=== PATIENT | male | born 1940 | race Caucasian/White ===

== ENCOUNTER → 2017-09-09 08:43 | Outpatient (CLI) | payer MEDICARE, SELFPAY ==
[2017-09-09 09:40] LABS: Add Manual Diff / Slide Review NO; Basophils Percent Auto 0.7 % (0-2); Eosinophils Percent Auto 9.3 % (2-4); Hematocrit 41.2 % (41-53); Hemoglobin 14.3 g/dL (13.5-17.5); Lymphocytes Percent Auto 34.7 % (25-40); Mean Corpuscular HGB Conc 34.8 % (30-36); Mean Corpuscular Hemoglobin 32.1 PG (26-34); Mean Corpuscular Volume 92.3 fL (80-100); Monocytes Percent Auto 8.7 % (3-14); Neutrophils Absolute Auto 3800 /uL (3000-5900); Neutrophils Percent Auto 46.6 % (50-75); Platelet Count 213 X10^3/uL (150-400); Red Blood Cell Count 4.47 X10^6/uL (4.5-5.9); Red Cell Distribution Width 13.6 % (11.6-14.8); White Blood Cell Count 8.2 X10^3/uL (4.5-11.0)
[2017-09-09 09:42] LABS: Alanine Aminotransferase 40 IU/L (21-72); Albumin 4.2 g/dL (3.5-5.0); Albumin Globulin Ratio 1.3 (1.0-2.8); Alkaline Phosphatase 63 U/L (38-126); Aspartate Aminotransferase 30 IU/L (17-59); BUN Creatinine Ratio 23.3 (6-22); Bilirubin Total 0.5 mg/dL (0.2-1.3); Blood Urea Nitrogen 28 mg/dL (9-20); Calcium 9.5 mg/dL (8.4-10.2); Carbon Dioxide 30 mmol/L (22-32); Chloride 103 mmol/L (98-107); Cholesterol 141 mg/dL (140-199); Estimated Glomerular Filt Rate 58.9 mL/min (>60); Globulin 3.3 g/dL (1.7-4.1); Glucose 106 mg/dL (80-110); HDL Cholesterol 37 mg/dL (40-60); HEMOLYSIS < 15 (0-50); LDL Cholesterol Calculated 83 mg/dL (<100); Potassium 4.7 mmol/L (3.4-5.1); Sodium 143 mmol/L (137-145); Total Protein 7.5 g/dL (6.3-8.2); Triglycerides 107 mg/dL (35-150)
== END ==
PROVIDERS: Family Provider Family Medicine; PCP Family Medicine; Visit Provider Family Medicine
DX: I10 Essential (primary) hypertension (principal); E78.00 Pure hypercholesterolemia, unspecified; Z51.81 Encounter for therapeutic drug level monitoring
CPT/HCPCS: 36415; 80053; 80061; 85025

== ENCOUNTER → 2018-01-27 10:04 | Outpatient (CLI) | payer MEDICARE, SELFPAY ==
[2018-01-27 10:24] LABS: Add Manual Diff / Slide Review NO; Basophils Percent Auto 0.6 % (0-2); Eosinophils Percent Auto 7.7 % (2-4); Hematocrit 43.3 % (41-53); Mean Corpuscular HGB Conc 34.6 % (30-36); Mean Corpuscular Volume 92.7 fL (80-100); Monocytes Percent Auto 7.4 % (3-14); Neutrophils Absolute Auto 3600 /uL (3000-5900); Neutrophils Percent Auto 46.3 % (50-75); Platelet Count 226 X10^3/uL (150-400); Red Blood Cell Count 4.67 X10^6/uL (4.5-5.9); Red Cell Distribution Width 12.9 % (11.6-14.8); White Blood Cell Count 7.8 X10^3/uL (4.5-11.0)
[2018-01-27 10:43] LABS: Alanine Aminotransferase 47 IU/L (21-72); Albumin 4.6 g/dL (3.5-5.0); Albumin Globulin Ratio 1.2 (1.0-2.8); Alkaline Phosphatase 65 U/L (38-126); Aspartate Aminotransferase 38 IU/L (17-59); Bilirubin Total 0.8 mg/dL (0.2-1.3); Blood Urea Nitrogen 22 mg/dL (9-20); Calcium 9.4 mg/dL (8.4-10.2); Carbon Dioxide 29 mmol/L (22-32); Chloride 100 mmol/L (98-107); Cholesterol 135 mg/dL (140-199); Estimated Glomerular Filt Rate > 60.0 mL/min (>60); Globulin 3.7 g/dL (1.7-4.1); Glucose 106 mg/dL (80-110); HDL Cholesterol 30 mg/dL (40-60); HEMOLYSIS < 15 (0-50); LDL Cholesterol Calculated 72 mg/dL (<100); Sodium 143 mmol/L (137-145); Total Protein 8.3 g/dL (6.3-8.2); Triglycerides 167 mg/dL (35-150)
[2018-01-27 11:10] LABS: Prostate Specific Antigen Scrn 0.892 ng/mL (0.1-4.0)
== END ==
PROVIDERS: Family Provider Family Medicine; PCP Family Medicine; Visit Provider Family Medicine
DX: E78.2 Mixed hyperlipidemia (principal); I10 Essential (primary) hypertension; E78.5 Hyperlipidemia, unspecified; Z12.5 Encounter for screening for malignant neoplasm of prostate
CPT/HCPCS: 36415; 80053; 80061; 84443; 85025; G0103

== ENCOUNTER → 2018-08-11 11:33 | Outpatient (CLI) | payer MEDICARE, SELFPAY ==
[2018-08-11 12:15] LABS: Add Manual Diff / Slide Review NO; Basophils Absolute Auto 0 /uL (0-100); Basophils Percent Auto 0.6 % (0-2); Eosinophils Absolute Auto 500 /uL (0-450); Eosinophils Percent Auto 6.2 % (2-4); Hematocrit 42.7 % (41-53); Hemoglobin 14.6 g/dL (13.5-17.5); Lymphocytes Absolute Auto 2500 /uL (1100-4500); Lymphocytes Percent Auto 31.9 % (25-40); Mean Corpuscular HGB Conc 34.2 % (30-36); Mean Corpuscular Hemoglobin 32.1 PG (26-34); Mean Corpuscular Volume 93.8 fL (80-100); Monocytes Absolute Auto 800 /uL (0-900); Monocytes Percent Auto 9.7 % (3-14); Neutrophils Absolute Auto 4000 /uL (1500-7000); Neutrophils Percent Auto 51.6 % (50-75); Platelet Count 215 X10^3/uL (150-400); Red Blood Cell Count 4.55 X10^6/uL (4.5-5.9); Red Cell Distribution Width 13.1 % (11.6-14.8); White Blood Cell Count 7.8 X10^3/uL (4.5-11.0)
[2018-08-11 13:03] LABS: Alanine Aminotransferase 36 IU/L (21-72); Albumin 4.4 g/dL (3.5-5.0); Albumin Globulin Ratio 1.3 (1.0-2.8); Alkaline Phosphatase 69 U/L (38-126); Aspartate Aminotransferase 29 IU/L (17-59); BUN Creatinine Ratio 18.2 (6-22); Bilirubin Total 0.7 mg/dL (0.2-1.3); Blood Urea Nitrogen 20 mg/dL (9-20); Calcium 9.7 mg/dL (8.4-10.2); Carbon Dioxide 29 mmol/L (22-32); Chloride 103 mmol/L (98-107); Cholesterol 131 mg/dL (140-199); Estimated Glomerular Filt Rate > 60.0 mL/min (>60); Globulin 3.5 g/dL (1.7-4.1); Glucose 100 mg/dL (80-110); HDL Cholesterol 32 mg/dL (40-60); HEMOLYSIS < 15 (0-50); LDL Cholesterol Calculated 64 mg/dL (<100); Potassium 4.9 mmol/L (3.4-5.1); Sodium 141 mmol/L (137-145); Total Protein 7.9 g/dL (6.3-8.2); Triglycerides 174 mg/dL (35-150)
== END ==
PROVIDERS: Family Provider Family Medicine; PCP Family Medicine; Visit Provider Family Medicine
DX: E78.5 Hyperlipidemia, unspecified (principal); I10 Essential (primary) hypertension; N28.9 Disorder of kidney and ureter, unspecified
CPT/HCPCS: 36415; 80053; 80061; 85025

== ENCOUNTER → 2018-09-20 15:23 | Outpatient (CLI) | payer MEDICARE, SELFPAY ==
--- NOTE | 2018-09-20 15:25 | DI.RAD.S_ITS ---
PROCEDURE: XR THORACIC SPINE 3V INDICATIONS: Thoracic myofascial strain TECHNIQUE: 3 views of the thoracic spine were acquired. COMPARISON: None. FINDINGS: Bones: No fractures or dislocations. No suspicious bony lesions. 12 pairs of ribs are noted, and appear intact where visualized. Soft tissues: No paravertebral stripe thickening. 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 This film is made of what appears to be in aortic stent graft and right upper quadrant cholecystectomy clips. Dictated by: Agustín Armijo M.D. on 09/20/2018 at 16:06 Approved by: Agustín Armijo M.D. on 09/20/2018 at 16:07
== END ==
PROVIDERS: PCP Family Medicine; Visit Provider Family Medicine
DX: M51.34 Other intervertebral disc degeneration, thoracic region (principal); S29.019A Strain of muscle and tendon of unspecified wall of thorax, initial encounter
CPT/HCPCS: 72072

== ENCOUNTER 2018-11-10 09:45 | Outpatient (RCR) | payer MEDICARE, SELFPAY ==
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
--- NOTE | 2018-10-10 15:57 | PT.OPPOC ---
Current Diagnoses Pain in thoracic spine (10/10/18) Strain of muscle and tendon of unspecified wall of thorax, initial encounter (10/10/18) Visit Care Team Role Provider Type Nadia Meeks DO Attending Provider Physician Primary [facility] Provider [facility] Address: [address] [place] [address], [address] [place] [address], [id number] Email: [email or web address] Plan Of Care PT-OP-T Assessment and Plan Start: 10/10/18 07:35 Freq: Status: Active Protocol: Document 10/10/18 14:30 AMB (Rec: 10/14/18 07:28 AMB [email or web address]) Physical Therapy Assessment Rehab Potential Rehabilitation Potential Good Evaluation Complexity Number of Personal Factors/Comorbidities 1-2 Number of Body Systems Impaired 3 Clinical Presentation at Evaluation Stable Impairments Impairments Pain,Posture,ROM Goals Two Impairment return to activity Short Term Goal (STG) Caesar will play 9 holes of golf without an increase in thoracic back pain. STG Duration 4 weeks Longterm Goal (LTG) Caesar will work on his car for 1 hour with thoracic back pain of 3/10 or less. LTG Duration 8 weeks One Impairment ROM Short Term Goal (STG) Caesar will improve his active sidebending ROM to 15 degrees . STG Duration 4 weeks Clinical Education Academic Coordinator Goal (LTG) Caesar will improve his spinal rotation so that he can roll over in bed without pain. LTG Duration 8 weeks Assessment Summary Assessment Caesar attends PT with worsening chronic right sided thoracic pain that is reproduced with thoracic rotation and sidebending. Pt has high level goals of working on his car (standing and flexing forward for extended periods of time) and return to golf. He will need to improve both his spinal range and stability to meet those goals. Physical Therapy Plan Frequency and Duration Frequency of Treatment 2x/Week Duration of Treatment 8 weeks Plan of Care Start Date 10/10/18 Plan of Care End Date 12/05/18 Therapeutic Interventions Therapeutic Interventions Aquatic Therapy,Home Exercise Program,Joint Mobilizations, Manual Therapy,Neuromuscular Re-education,Self-Care/Home Management,Therapeutic Activities,Therapeutic Exercises Modalities Cold Pack/Ice Massage,Electric Stimulation,Hot Packs Next Visit Focus/Plan Next Note Type Treatment Note Next Visit Plan Manual therapy to promote spinal rotation without pain, ther ex to move into rotation and flexion with less pain Plan of Care Dates Plan of Care Start Date 10/10/18 Plan of Care End Date 12/05/18 Please Sign and Return: I have reviewed this Plan of Care and certify that the skilled therapy services above are required to meet the patient?s needs. Physician Signature Date Printed Name and Credentials Clinical Instructor Signature Printed Name and Credentials
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
== END 2018-11-25 12:31 ==
LOC: PHYS 09:45
PROVIDERS: PCP Family Medicine; Visit Provider Family Medicine
DX: S29.019A Strain of muscle and tendon of unspecified wall of thorax, initial encounter (principal); M54.6 Pain in thoracic spine
CPT/HCPCS: 97110; 97140; 97161

== ENCOUNTER → 2019-08-16 09:59 | Outpatient (CLI) | payer MEDICARE, SELFPAY ==
[2019-08-16 11:20] LABS: Creatinine Urine Random 230.4 mg/dL
[2019-08-16 11:25] LABS: Microalbumi Creatinin Ratio Ur 9.1 ug/mg CR (<30); Microalbumin Urine Random 2.1 mg/dL (0-1.6)
[2019-08-16 11:41] LABS: Alanine Aminotransferase 35 IU/L (<50); Albumin 4.3 g/dL (3.5-5.0); Albumin Globulin Ratio 1.3 (1.0-2.8); Alkaline Phosphatase 69 U/L (38-126); Aspartate Aminotransferase 40 IU/L (17-59); BUN Creatinine Ratio 22.4 (6-22); Blood Urea Nitrogen 24 mg/dL (9-20); Calcium 9.5 mg/dL (8.4-10.2); Carbon Dioxide 26 mmol/L (22-32); Chloride 104 mmol/L (98-107); Cholesterol 133 mg/dL (140-199); Estimated Glomerular Filt Rate > 60.0 mL/min (>60); Globulin 3.2 g/dL (1.7-4.1); Glucose 99 mg/dL (80-110); HDL Cholesterol 29 mg/dL (40-60); HEMOLYSIS < 15 (0-50); LDL Cholesterol Calculated 71 mg/dL (<100); Potassium 4.3 mmol/L (3.4-5.1); Sodium 137 mmol/L (137-145); Total Protein 7.5 g/dL (6.3-8.2); Triglycerides 165 mg/dL (35-150)
[2019-08-16 12:06] LABS: Free T3, Triiodothyronine Free 4.18 pg/mL (2.77-5.27); Free T4, Direct Thyroxine 0.76 ng/dL (0.78-2.19)
[2019-08-16 12:20] LABS: Thyroid Stimulating Hormone 4.47 uIU/mL (0.47-4.68)
== END ==
PROVIDERS: PCP Nurse Practitioner; Referring Provider Nurse Practitioner; Visit Provider Nurse Practitioner
DX: E78.5 Hyperlipidemia, unspecified (principal); I10 Essential (primary) hypertension; Z79.899 Other long term (current) drug therapy
CPT/HCPCS: 36415; 80053; 80061; 82043; 82570; 84439; 84443; 84481

== ENCOUNTER → 2019-08-23 10:23 | Outpatient (CLI) | payer MEDICARE, SELFPAY ==
[2019-08-24 16:15] LABS: Hep C Virus Ab w/Reflex Quant NEGATIVE s/c (NEGATIVE)
== END ==
PROVIDERS: PCP Nurse Practitioner; Referring Provider Nurse Practitioner; Visit Provider Nurse Practitioner
DX: Z91.89 Other specified personal risk factors, not elsewhere classified (principal); Z11.59 Encounter for screening for other viral diseases
CPT/HCPCS: 36415; 86803

== ENCOUNTER → 2019-09-01 11:47 | Outpatient (CLI) | payer MEDICARE, SELFPAY ==
[2019-09-02 21:00] LABS: COVID19 Sendout Not Detected (Not Detect)
== END ==
PROVIDERS: PCP Nurse Practitioner; Visit Provider Nurse Practitioner
DX: Z01.812 Encounter for preprocedural laboratory examination (principal)
CPT/HCPCS: 87635

== ENCOUNTER 2019-09-04 07:30 | Day surgery (SDC) | payer MEDICARE, SELFPAY ==
[2019-08-30 14:00] VITALS: BMI 31.7
[2019-09-04] VITALS (7 sets, daily range): BP systolic 123–141; BP diastolic 77–87; PULSE 60–69; RESP 11–16; TEMP 35.7–36.1; O2SAT 95–98; BMI 31.4
--- NOTE | 2019-09-04 | PATH_ITS ---
[facility] Accession Number: [id number] . 01 Material submitted: . PART A: hemorrhoids - RIGHT ANTERIOR HEMORRHOID PART B: hemorrhoids - RIGHT LATERAL HEMORRHOID PART C: hemorrhoids - POSTERIOR MIDLINE HEMORRHOID PART D: hemorrhoids - LEFT LATERAL HEMORRHOID . 01 Clinical history: . SDC . 02 Diagnosis: A. Right Anterior Hemorrhoid: Hemorrhoid x1; negative for atypia or malignancy. . B. Right Lateral Hemorrhoid: Hemorrhoid with focal vascular thrombosis; negative for atypia or malignancy. . C. Posterior Midline Hemorrhoid: Hemorrhoid x1; negative for atypia or malignancy. . D. Left Lateral Hemorrhoid: Hemorrhoid x1; negative for atypia or malignancy. [facility] 09/06/2019 0958 Local . 02 Electronically signed: . Shira Mcghee MD, Pathologist NPI- [id number] . 01 Gross description: . A. Received in formalin and labeled with right anterior hemorrhoid, is one piece of gomez soft tissue measuring 2.6 x 1.9 x 0.6 cm. The tissue is inked, serially sectioned, and submitted in three software sales representative sections in cassette A1. B. Received in formalin and labeled with right lateral hemorrhoid, is one piece of gomez firm tissue 3.9 x 1.4 x 0.5 cm. The tissue is inked, serially sectioned and submitted in six software sales representative sections in cassettes B1 and B2, with three slices per cassette. C. Received in formalin and labeled with posterior midline hemorrhoid, are two pieces of gomez soft tissue measuring 1.7 x 1.5 x 0.5 to 1.3 x 0.6 x 0.4 cm. Both pieces are inked. Two software sales representative sections are taken from both pieces and entirely submitted in cassette C1, for a total of four pieces. D. Received in formalin and labeled with left lateral hemorrhoid, is one piece of gomez firm tissue measuring 1.2 x 1.0 x 0.4 cm. The tissue is inked, trisected, and entirely submitted in cassette D1. ([id number]) /MRV 09/05/2019 0949 Local . 02 Pathologist provided ICD-10: K64.9 . 02 CPT . 551029, [id number], 508042, [id number] Performed at: 01 [facility] [address] [id number] MD Jesus Ceballos MD Phone: [phone] Performed at: 02 [facility] [id number] [place] [id number] MD Theresa Antoine MD Phone: [phone]
--- NOTE | 2019-09-04 07:53 | PM.PREOP ---
Pre-operative Note COVID-19 COVID-19 status: Negative Result date/Date tested (Pos, Neg/Pending): 09/01/19 Interval Note History & Physical reviewed/Exam performed by Physician: Yes Changes to H&P: No
[2019-09-04] MEDS: LACTATED RINGERS 1,000 ML 42 ML IV (08:06)
[2019-09-04] MEDS: CEFOTETAN 2 GM/50 ML PIGGYBACK IV (08:25)
--- NOTE | 2019-09-04 08:50 | SUR.OPER ---
Prone on padded OR bed, head in foam head support, gel chest rolls, gel pad under knees, pillow under lower legs, toes free of pressure, arms secured on padded arm boards at <90 degrees abduction. Safety belt at thigh.
[2019-09-04] MEDS: DIBUCAINE 1% OINT 28 GM 1 APPLIC TOP (08:57)
[2019-09-04] MEDS: LIDOCAINE 1% W/EPI 20 ML INJ (08:58)
[2019-09-04] MEDS: OXYCODONE/ACETAMINOPHEN 5/325 TABLET 1 TAB PO (10:11)
--- NOTE | 2019-09-04 10:11 | PM.OP.1 ---
Operative Date/Time/Diagnoses Date of procedure: 09/04/19 Time of procedure: 10:00 Pre-op diagnosis: Grade 3 bleeding internal and external hemorrhoids Post-op diagnosis: same Procedure & Clinicians Procedure: For column hemorrhoidectomy. To the columns were principally internal hemorrhoids. Two had some external component. Same procedure as scheduled: Yes Indications: Symptomatic hemorrhoidal disease Surgeon: Chauncey Mejia Click Yes if Unassisted: Yes Anesthesia Type: General Operative Notes Findings: Four large columns of hemorrhoids. There was a right anterior lateral right lateral midline posterior and left lateral columns. The last 2 were principally internal hemorrhoids. Closure Type: not applicable Specimen(s): other (Four columns of hemorrhoids) Estimated Blood Loss (mL): 150 Blood products transfused: none Procedure in detail: The patient was se struck knife prone on the operating room table after undergoing general endotracheal anesthesia. He was taped and prepped and draped in the usual fashion. Digital exam was remarkable only for hemorrhoids. These were principally visible and appeared to be large. Circumferential exam was performed with the bivalve anoscope. I could not identify any lesions other than large hemorrhoids. Beginning in the right anterior anterior position, a suture was placed at the head of the hemorrhoid column. An incision was made in the anal derm sparing as much as possible. The hemorrhoid was lifted off the underlying sphincter and muscle and excised. The defect created was closed with a running locking 2 0 chromic suture. In an identical fashion the right lateral hemorrhoidal column was removed. There is arterial bleeding from this that was controlled with a separate [id number] suture. The defect created was then closed in an identical fashion to the 1st. I then turned my attention to the posterior midline hemorrhoidal column. This was principally an internal hemorrhoid. Suture was placed at the head of the column and the hemorrhoid was excised distal to this. The defect created was closed with a running 2 0 chromic locking suture. The final column, a little left lateral column, was removed in identical fashion to the posterior midline hemorrhoid. I then oversewed areas that had any bleeding and meticulous hemostasis was achieved. Gelfoam with Nupercainal was inserted into the anus. A dressing was applied the patient was placed back on the stretcher supine, awakened and extubated and taken recovery room good condition. Complications: none Post-operative Condition: stable Disposition: PACU Plan for aftercare: Follow-up in the office
== END 2019-09-04 11:17 | disposition home or self-care (01) ==
PROVIDERS: PCP Nurse Practitioner; Referring Provider Specialist; Visit Provider Specialist
PROC: (CPT 46260; principal; 2019-09-04 09:15)
DX: K64.2 Third degree hemorrhoids (principal); K21.9 Gastro-esophageal reflux disease without esophagitis; I10 Essential (primary) hypertension; E78.5 Hyperlipidemia, unspecified; K64.4 Residual hemorrhoidal skin tags
CPT/HCPCS: 46260; J1100; J2405; J2704; J3010

== ENCOUNTER → 2019-11-21 10:37 | Outpatient (CLI) | payer MEDICARE, SELFPAY ==
[2019-11-21 12:43] LABS: Cholesterol 133 mg/dL (140-199); HDL Cholesterol 26 mg/dL (40-60); LDL Cholesterol Calculated 71 mg/dL (<100); Triglycerides 178 mg/dL (35-150)
[2019-11-21 13:22] LABS: Thyroid Stimulating Hormone 3.45 uIU/mL (0.47-4.68)
[2019-11-21 13:23] LABS: Creatinine Urine Random 134.1 mg/dL
[2019-11-21 13:27] LABS: Microalbumi Creatinin Ratio Ur 7.4 ug/mg CR (<30)
== END ==
PROVIDERS: PCP Nurse Practitioner; Referring Provider Nurse Practitioner; Visit Provider Nurse Practitioner
DX: E78.5 Hyperlipidemia, unspecified (principal); I10 Essential (primary) hypertension; Z11.59 Encounter for screening for other viral diseases; Z91.89 Other specified personal risk factors, not elsewhere classified
CPT/HCPCS: 36415; 80061; 82043; 82570; 84443

== ENCOUNTER → 2020-07-09 07:41 | Outpatient (CLI) | payer MEDICARE, SELFPAY ==
[2020-07-09 08:35] LABS: Alanine Aminotransferase 33 IU/L (<50); Albumin 4.2 g/dL (3.5-5.0); Albumin Globulin Ratio 1.2 (1.0-2.8); Alkaline Phosphatase 67 U/L (38-126); Aspartate Aminotransferase 33 IU/L (17-59); Bilirubin Total 0.6 mg/dL (0.2-1.3); Blood Urea Nitrogen 20 mg/dL (9-20); Calcium 9.4 mg/dL (8.4-10.2); Carbon Dioxide 24 mmol/L (22-32); Chloride 106 mmol/L (98-107); Cholesterol 135 mg/dL (140-199); Estimated Glomerular Filt Rate > 60.0 mL/min (>60); Globulin 3.5 g/dL (1.7-4.1); Glucose 106 mg/dL (80-110); HDL Cholesterol 33 mg/dL (40-60); HEMOLYSIS < 15 (0-50); LDL Cholesterol Calculated 74 mg/dL (<100); Potassium 4.3 mmol/L (3.4-5.1); Sodium 138 mmol/L (137-145); Total Protein 7.7 g/dL (6.3-8.2); Triglycerides 140 mg/dL (35-150)
[2020-07-09 08:45] LABS: Free T3, Triiodothyronine Free 3.58 pg/mL (2.77-5.27); Free T4, Direct Thyroxine 0.85 ng/dL (0.78-2.19)
[2020-07-09 08:59] LABS: Thyroid Stimulating Hormone 5.59 uIU/mL (0.47-4.68)
[2020-07-09 09:11] LABS: Creatinine Urine Random 329.5 mg/dL
[2020-07-09 09:15] LABS: Microalbumi Creatinin Ratio Ur 5.4 ug/mg CR (<30); Microalbumin Urine Random 1.8 mg/dL (0-1.6)
== END ==
PROVIDERS: PCP Nurse Practitioner; Referring Provider Nurse Practitioner; Visit Provider Nurse Practitioner
DX: E78.5 Hyperlipidemia, unspecified (principal); I10 Essential (primary) hypertension; Z79.899 Other long term (current) drug therapy
CPT/HCPCS: 36415; 80053; 80061; 82043; 82570; 84439; 84443; 84481

== ENCOUNTER → 2020-07-30 11:22 | Outpatient (CLI) | payer MEDICARE, SELFPAY ==
--- NOTE | 2020-07-30 11:26 | DI.RAD.S_ITS ---
PROCEDURE: XR CHEST 2V INDICATIONS: wheezing and cough TECHNIQUE: 2 views of the chest were acquired. COMPARISON: None. FINDINGS: Surgical changes and devices: None. Lungs and pleura: Lungs are abnormal with relatively large lung volumes and a mild degree of interstitial prominence, potentially representing COPD. No pneumonia or neoplasm found.. No pleural effusions or pneumothorax. Mediastinum: Mediastinal contours are normal. Heart size is normal. Bones and chest wall: No suspicious bony abnormalities. Soft tissues appear unremarkable. IMPRESSION: Suspect COPD, no acute disease. Dictated by: Agustín Armijo M.D. on 07/30/2020 at 12:19 Approved by: Agustín Armijo M.D. on 07/30/2020 at 12:20
== END ==
PROVIDERS: PCP Nurse Practitioner; Referring Provider Nurse Practitioner; Visit Provider Nurse Practitioner
DX: R06.2 Wheezing (principal); R05 Cough
CPT/HCPCS: 71046

== ENCOUNTER → 2020-09-15 15:53 | Outpatient (CLI) | payer MEDICARE, SELFPAY | PROVIDERS: PCP Nurse Practitioner; Visit Provider Student in an Organized Health Care Education/Training Program | DX: R30.0 Dysuria (principal) | CPT/HCPCS: 87077; 87086; 87186 ==

== ENCOUNTER → 2021-07-15 09:07 | Outpatient (CLI) | payer MEDICARE, SELFPAY ==
[2021-07-15 10:22] LABS: Alanine Aminotransferase 28 IU/L (<50); Albumin 4.3 g/dL (3.5-5.0); Albumin Globulin Ratio 1.3 (1.0-2.8); Alkaline Phosphatase 70 U/L (38-126); Aspartate Aminotransferase 29 IU/L (17-59); BUN Creatinine Ratio 14.8 (6-22); Bilirubin Total 0.7 mg/dL (0.2-1.3); Blood Urea Nitrogen 17 mg/dL (9-20); Calcium 9.1 mg/dL (8.4-10.2); Carbon Dioxide 28 mmol/L (22-32); Chloride 103 mmol/L (98-107); Cholesterol 139 mg/dL (140-199); Estimated Glomerular Filt Rate > 60 mL/min (>60); Globulin 3.2 g/dL (1.7-4.1); Glucose 116 mg/dL (80-110); HDL Cholesterol 35 mg/dL (40-60); HEMOLYSIS < 15 (0-50); LDL Cholesterol Calculated 76 mg/dL (<100); Potassium 4.3 mmol/L (3.4-5.1); Sodium 138 mmol/L (137-145); Total Protein 7.5 g/dL (6.3-8.2); Triglycerides 141 mg/dL (35-150)
[2021-07-15 10:41] LABS: Free T3, Triiodothyronine Free 3.91 pg/mL (2.77-5.27); Free T4, Direct Thyroxine 0.83 ng/dL (0.78-2.19)
[2021-07-15 10:55] LABS: Thyroid Stimulating Hormone 3.45 uIU/mL (0.47-4.68)
[2021-07-15 11:05] LABS: Creatinine Urine Random 315.5 mg/dL
[2021-07-15 11:11] LABS: Microalbumi Creatinin Ratio Ur 7.6 ug/mg CR (<30); Microalbumin Urine Random 2.4 mg/dL (0-1.6)
== END ==
PROVIDERS: PCP Nurse Practitioner; Referring Provider Nurse Practitioner; Visit Provider Nurse Practitioner
DX: E78.2 Mixed hyperlipidemia (principal); I10 Essential (primary) hypertension; Z79.899 Other long term (current) drug therapy
CPT/HCPCS: 36415; 80053; 80061; 82043; 82570; 84439; 84443; 84481

== ENCOUNTER → 2021-07-22 10:20 | Outpatient (CLI) | payer MEDICARE, SELFPAY ==
--- NOTE | 2021-07-22 10:23 | DI.US.S_ITS ---
PROCEDURE: US SCROTUM INDICATIONS: SCROTAL MASS TECHNIQUE: Real-time scanning was performed of the scrotum and testicles, with image documentation. Color and pulse Doppler interrogation was performed of both testicles. COMPARISON: None. FINDINGS: Right: Testicle is normal in size at 4.3 x 1.7 x 2.5 cm, and slightly heterogeneous in echotexture. Epididymis is normal in overall size and morphology. No hydrocele or varicoceles. Overlying scrotal skin is normal in thickness. Left: Testicle is normal in size at 3.9 x 1.6 x 2.4 cm, and slightly heterogeneous in echotexture. Epididymal head measures 0.7 x 0.5 x 0.8 cm. There is a 1.5 x 1.3 cm echogenic lesion within the epididymal tail which correlates with palpable area of patient concern. There is minimal internal vascularity. This is relatively homogeneously hyperechoic. This is well-circumscribed and oval in shape. No hydrocele. There are multiple varicoceles. Overlying scrotal skin is normal in thickness. Doppler: Color and pulse Doppler demonstrate normal and symmetric arterial flow in both testicles. IMPRESSION: 1. Normal sonographic appearance of the bilateral testicles. 2. There is a 1.3 cm echogenic lesion within the epididymal tail with minimal internal vascularity. 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 Consider urology consultation and short interval follow-up ultrasound to document continued stability. 3. Left-sided varicoceles. Dictated by: Raghu Begum M.D. on 07/22/2021 at 11:11 Approved by: Raghu Begum M.D. on 07/22/2021 at 11:23
== END ==
PROVIDERS: PCP Nurse Practitioner; Referring Provider Nurse Practitioner; Visit Provider Nurse Practitioner
DX: N50.9 Disorder of male genital organs, unspecified (principal)
CPT/HCPCS: 76870

== ENCOUNTER → 2021-09-03 12:11 | Outpatient (CLI) | payer MEDICARE, SELFPAY ==
--- NOTE | 2021-09-03 | DI.MRI.S_ITS ---
PROCEDURE: MR CERVICAL SPINE WO CON INDICATIONS: Spinal stenosis, cervical region TECHNIQUE: Noncontrast sagittal T1 spin echo and T2 fast spin echo, sagittal STIR, foraminal oblique sagittal T2 fast spin echo, and axial gradient echo or T2 fast spin echo through the cervical spine. COMPARISON: [facility], MR, C-SPINE WITHOUT CONTRAST, 07/31/2008, 11:12. FINDINGS: Image quality: Excellent. Alignment and Curvature: There is normal bony alignment. Bone Marrow: Mild degenerative endplate changes noted C6-7 Spinal Cord: Visualized spinal cord has normal size and signal. No cerebellar tonsillar herniation. Paraspinous Soft Tissues: No paravertebral masses. Prevertebral soft tissues are normal in thickness. C2-C3: Disc height is maintained. Hypertrophic left uncovertebral joints result in moderate left and no right foraminal stenosis. Mild central stenosis present. C3-C4: Disc height is maintained. Posterior disc osteophyte complex is eccentric to the left results in mild to moderate central stenosis. Hypertrophic uncovertebral joints result in moderate left and no right foraminal stenosis. C4-C5: Disc height is maintained. Central posterior disc osteophyte complex results in mild central stenosis. Hypertrophic uncovertebral joints present with mild bilateral foraminal stenosis. C5-C6: Disc height is maintained. Posterior disc osteophyte complex results in moderate central stenosis. Hypertrophic facet joints present with moderate left and no right foraminal stenosis. C6-C7: Disc osteophyte complex present with mild central stenosis. Hypertrophic facet joints noted without foraminal stenosis. C7-T1: Disc height is maintained. No central stenosis. No foraminal stenosis. IMPRESSION: Multilevel degenerative disc disease and arthropathy results in varying degrees of central and foraminal stenosis including mild to moderate central stenosis at C5-6 and C3-4 Approved by: Hemant Quesada M.D. on 09/03/2021 at 17:04
== END ==
PROVIDERS: PCP Nurse Practitioner; Referring Provider Physical Medicine & Rehabilitation; Visit Provider Physical Medicine & Rehabilitation
DX: M48.02 Spinal stenosis, cervical region (principal); M50.31 Other cervical disc degeneration, high cervical region; M47.812 Spondylosis without myelopathy or radiculopathy, cervical region
CPT/HCPCS: 72141

== ENCOUNTER → 2021-09-23 09:56 | Outpatient (CLI) | payer MEDICARE, SELFPAY ==
--- NOTE | 2021-09-23 | DI.US.S_ITS ---
PROCEDURE: US CAROTID DOPPLER BI INDICATIONS: Stenosis of bilateral carotid arteries TECHNIQUE: Color and pulse Doppler interrogation was performed of both carotid systems, with image documentation and velocity measurements. COMPARISON: [facility], , CAROTID ARTERY DOPPLER BILAT, 01/22/2014, 9:52. [facility], , CAROTID ARTERY DOPPLER BILAT, 07/22/2010, 10:51. FINDINGS: Stenosis calculations are based on SRU (Society of Radiologists in Ultrasound) criteria. The flow velocities and the arterial waveforms are normal within both carotid arterial systems. Atherosclerotic plaque is seen on both sides. The estimated degree of internal carotid artery stenosis is less than 50%. Antegrade flow is confirmed within both vertebral arteries. IMPRESSION: No hemodynamically significant stenosis is seen. No significant change from the prior. Atherosclerotic plaque is noted bilaterally. Dictated by: Fly El M.D. on 09/23/2021 at 11:02 Approved by: Fly El M.D. on 09/23/2021 at 11:02
== END ==
PROVIDERS: PCP Nurse Practitioner; Referring Provider Internal Medicine Cardiovascular Disease; Visit Provider Internal Medicine Cardiovascular Disease
DX: I65.23 Occlusion and stenosis of bilateral carotid arteries (principal)
CPT/HCPCS: 93880

== ENCOUNTER → 2021-10-28 10:49 | Outpatient (CLI) | payer MEDICARE, SELFPAY ==
[2021-10-28 12:02] LABS: Hemoglobin A1C% w Est Avg Glu 5.8 % (4.0-6.0)
[2021-10-28 12:03] LABS: Cholesterol 160 mg/dL (140-199); Glucose 103 mg/dL (80-110); HDL Cholesterol 31 mg/dL (40-60); LDL Cholesterol Calculated 92 mg/dL (<100); Triglycerides 185 mg/dL (35-150)
== END ==
PROVIDERS: PCP Nurse Practitioner; Referring Provider Nurse Practitioner; Visit Provider Nurse Practitioner
DX: E78.5 Hyperlipidemia, unspecified (principal); R73.01 Impaired fasting glucose; I10 Essential (primary) hypertension
CPT/HCPCS: 36415; 80061; 82947; 83036

== ENCOUNTER → 2021-11-25 11:08 | Outpatient (CLI) | payer MEDICARE, SELFPAY ==
[2021-11-25 13:05] LABS: COVID19 -Nasal RAPID Negative (Negative)
== END ==
PROVIDERS: PCP Nurse Practitioner; Visit Provider Surgery
DX: Z20.822 Contact with and (suspected) exposure to COVID-19 (principal); Z01.812 Encounter for preprocedural laboratory examination
CPT/HCPCS: 87635; C9803

== ENCOUNTER 2021-11-26 11:16 | Day surgery (SDC) | payer MEDICARE, SELFPAY ==
[2021-11-26] VITALS (8 sets, daily range): BP systolic 108–128; BP diastolic 63–77; PULSE 59–66; RESP 12–19; TEMP 36.4; O2SAT 97–100; BMI 31.3
--- NOTE | 2021-11-26 | PATH_ITS ---
[facility] Accession Number: [id number] . 01 Material submitted: . PART A: stomach - ANTRUM PART B: esophagus, E-G Junction - GE JUNCTION . 01 Diagnosis: A. Stomach, Antrum, Biopsy: Antral mucosa with mild chronic gastritis. No evidence of Helicobacter organisms on H/E stain. Negative for intestinal metaplasia. Negative for dysplasia or malignancy. . B. Gastroesophageal Junction, Biopsy: Squamocolumnar junctional mucosa with specialized intestinal metaplasia, consistent with Vivar's esophagus. Negative for dysplasia and malignancy. [facility] 12/01/2021 1213 Local . 01 Electronically signed: . Theresa Antoine MD, Pathologist NPI- [id number] . 01 Gross description: . Part A: ANTRUM: Received in formalin is 1 fragment(s) of strange, soft tissue measuring 0.3 x 0.2 x 0.2 cm submitted entirely in 1 cassette(s) Part B: GE JUNCTION: Received in formalin is 1 fragment(s) of strange, soft tissue measuring 0.1 x 0.1 x 0.1 cm submitted entirely in 1 cassette(s) /REGGIE 11/27/2021 2226 Local . 01 Pathologist provided ICD-10: K22.70 . 01 CPT . 560566, [id number] Specimen Comment: A courtesy copy of this report has been sent to [phone] Performed at: 01 [facility] [address] [place] [address], [place], [place] [id number] MD Jesus Ceballos MD Phone: [phone]
[2021-11-26] MEDS: SODIUM CHLORIDE 0.9% 1,000 ML 84 ML IV (11:55)
--- NOTE | 2021-11-26 12:24 | PM.HP.1 ---
History of Present Illness History of Present Illness Date Patient Seen: 11/26/21 Time Patient Seen: 12:24 Chief complaint: SDC Narrative: My recent office note was reviewed. No changes., Patient History Medical History Actinic keratosis (~05/2012) Allergic rhinitis (Unknown) Back pain Vivar's esophagus (Unknown) Bilateral knee pain Blepharitis of both eyes Chronic right hip pain Elevated fasting glucose Elevated hemoglobin A1c Encounter for hepatitis C virus screening test for high risk patient GERD (gastroesophageal reflux disease) (Unknown) Grade III hemorrhoids History of abdominal aortic aneurysm (AAA) (Unknown) Hyperlipemia (Unknown) Hypertension (Unknown) Laceration of left hand Left shoulder pain Neck pain Neoplasm of uncertain behavior of epididymis Obstructive lung disease PAC (premature atrial contraction) PVC's (premature ventricular contractions) RBBB (right bundle branch block) Right inguinal hernia (Unknown) Umbilical hernia (Unknown) Surgical History History of endovascular stent graft for abdominal aortic aneurysm (AAA) (02/2012) Hx of cholecystectomy Hx of hernia repair (~1989) Hx of vasectomy Status post hernia repair (Unknown) Family & Social History Family History Father Diabetes mellitus Mother No problems noted. Brother No problems noted. Brother No problems noted. Brother No problems noted. Brother No problems noted. Social History: household members spouse Tobacco & Substance use: Smoking Status Former smoker alcohol intake current alcohol intake frequency a few times a week Substance Use Type does not use Meds Home Medications and Allergies Home Medications Medication Instructions Recorded Confirmed Type multivitamin 1 cap PO DAILY ##0 06/19/10 11/26/21 History aspirin 81 mg tablet,delayed 81 mg PO DAILY 09/04/19 11/26/21 History release loratadine 10 mg tablet (Claritin) 10 mg PO DAILY PRN allergy symptoms 07/22/21 11/26/21 History amoxicillin 500 mg tablet 2,000 mg PO ONCE PRN prior to 11/03/21 11/26/21 Rx dental work #4 tabs omega-3 fatty acids 1,000 mg 1,000 mg PO BID 11/03/21 11/26/21 History capsule (Fish Oil Concentrate) omeprazole 40 mg capsule,delayed 40 mg PO DAILY #90 caps 11/03/21 11/26/21 Rx release hydrochlorothiazide 25 mg tablet 25 mg PO DAILY 11/26/21 11/26/21 History metoprolol succinate 50 mg 50 mg PO DAILY 11/26/21 11/26/21 History tablet,extended release 24 hr rosuvastatin 10 mg tablet 10 mg PO DAILY 11/26/21 11/26/21 History Allergies Allergy/AdvReac Type Severity Reaction Status Date / Time No Known Drug Allergies Allergy Verified 11/26/21 11:32 Review of Systems Review of Systems ROS: Yes All systems reviewed with the patient and are negative except as otherwise documented Exam Vital Signs (past 8 hours): - 11/26/21 11:42 Temperature 97.6 F Pulse Rate 66 Respiratory Rate 12 Blood Pressure 113/74 Pulse Oximetry 99 Oxygen Delivery Method Room Air Oxygen Delivery Method Room Air Const General: cooperative HENMT Head: normal to inspection Eyes General: appearance normal, both eyes and all related structures Neck Neck: normal visual inspection Chest Chest: normal inspection of the chest Resp Effort & Inspection: normal respiratory effort Cardio Rate: regular rate GI Inspection: normal to inspection Skin General: no rashes or lesions noted Neuro General: patient alert and patient awake Extrem General: normal to inspection and no pedal edema Psych Appearance: grossly normal Assessment & Plan Assessment & Plan narrative: 80 yo male with hx of possible Vivar's and family hx of CRC. EGD/colon is pursued today. Time Spent With Patient Critical Care time: I spent a total of [] minutes of critical care time on this patient's care today; this time is exclusive of procedural time.
--- NOTE | 2021-11-26 12:26 | PM.PREOP ---
Pre-operative Note COVID-19 COVID-19 status: Negative Result date/Date tested (Pos, Neg/Pending): 11/25/21 Criteria for continued procedure: Possibility delay results in more complex future surgery or treatment Interval Note History & Physical reviewed/Exam performed by Physician: Yes Changes to H&P: No ASA Class (for procedural sedation): II
--- NOTE | 2021-11-26 13:06 | P.OP.EGD&C_ITS ---
Operative Date/Time/Diagnoses Date of procedure: 11/26/21 Time of procedure: 13:06 Pre-op diagnosis: Hx of possible barretts. family hx colon cancer Post-op diagnosis: same Procedure & Clinicians Study performed: EGD with bx and colonoscopy Same procedure as scheduled: Yes Indications: possible sanches's and family hx CRC Surgeon: Caesar Schilling Procedure Notes SCOAP/Timeout: Done Procedure in detail: Please see nurse reverberatory furnace supervisor notes for sedation details. EGD scope was advanced to duodenum and withdrawn. Colon was accomplished to cecum and withdrawn. Rettroflexed views in rectum accomplished. Prep adequate adult scope Scope withdrawal time: 7min Sedation minutes: 17 Complications: none Impression: 1. Duodenum: Normal. 2. Stomach: Gastropathy noted. Antral bx's acquired. 3. Esophagus: GEJ at 44cm from incisors. No esophagitis. A couple of small islands of possible Sanches's just prox to the GEJ. Sampled with forcesp. Otherwise normal esophaguzs. 4. Colon: Diverticula in the sigmoid. No significant polyps or mass lesions throughout. Nonbleeding small AVM noted in the cecum Endo Dx: 1. Possible small Sanches's islands 2. Gastropathy 3. Diverticulosis 4. Otherwise normal colon. Post-procedure Plan for aftercare: 1. Await histology to determine if surveillance required. 2. Continue anti- reflux therapy Disposition: PACU
== END 2021-11-26 13:48 | disposition home or self-care (01) ==
PROVIDERS: PCP Nurse Practitioner; Referring Provider Internal Medicine Gastroenterology; Visit Provider Internal Medicine Gastroenterology
PROC: 0DJ08ZZ Inspection of Upper Intestinal Tract, Via Natural or Artificial Opening Endoscopic (ICD-10-PCS; CPT 43235; principal; 2021-11-26 12:30)
PROC: 0DJD8ZZ Inspection of Lower Intestinal Tract, Via Natural or Artificial Opening Endoscopic (ICD-10-PCS; CPT 45378; 2021-11-26 12:30)
DX: Z12.11 Encounter for screening for malignant neoplasm of colon (principal); Z80.0 Family history of malignant neoplasm of digestive organs; Z87.19 Personal history of other diseases of the digestive system; K31.9 Disease of stomach and duodenum, unspecified; K57.30 Diverticulosis of large intestine without perforation or abscess without bleeding; K29.50 Unspecified chronic gastritis without bleeding; K22.70 Barrett's esophagus without dysplasia
CPT/HCPCS: 43239; G0105; J2704

== ENCOUNTER 2022-02-09 19:37 | Emergency (ER) | payer MEDICARE, SELFPAY ==
[2022-02-09] VITALS (8 sets, daily range): BP systolic 129–155; BP diastolic 66–77; PULSE 76–99; RESP 17–23; TEMP 38.7; O2SAT 97–98; BMI 31.4
[2022-02-09 21:02] LABS: Ictotest Urine Positive (Negative)
[2022-02-09 21:23] LABS: RBC Urine 30-100/HPF (0-5/HPF); WBC Urine 10-30/HPF (0-5/HPF)
[2022-02-09 21:24] LABS: Bacteria Urine Moderate (10-30); Squamous Epithelial Cell Urine None Seen (0-5/HPF)
--- NOTE | 2022-02-09 21:25 | DI.RAD.S_ITS ---
PROCEDURE: XR CHEST 1V INDICATIONS: sepsis TECHNIQUE: One view of the chest was acquired. COMPARISON: [facility], CR, XR CHEST 2V, 07/30/2020, 11:24. FINDINGS: Surgical changes and devices: None. Lungs and pleura: Lungs are clear. No pleural effusions or pneumothorax. Mediastinum: Mediastinal contours appear normal. Heart size is normal. Bones and chest wall: No suspicious bony lesions. Overlying soft tissues appear unremarkable. IMPRESSION: No acute pulmonary process. Dictated by: Macrina Bal M.D. on 02/09/2022 at 22:32 Approved by: Macrina Bal M.D. on 02/09/2022 at 22:32
--- NOTE | 2022-02-09 21:33 | ED_ITS ---
HPI - Male Genitourinary General Chief complaint: Urogenital-Male Stated complaint: Bladder inf Time Seen by Provider: 02/09/22 21:29 Source: patient Mode of arrival: Ambulatory History of Present Illness HPI Narrative: 81-year-old male former smoker with history of hypertension, epididymal cancer, Vivar's esophagus and prior UTIs presents with the chief complaint of concern of another UTI. He states that for the past few days he has had symptoms consistent with UTI including burning, frequency and urgency as well as fever and chills. He denies any headache, runny nose, sore throat or cough. He has no chest pain or shortness of breath. He has no nausea, vomiting or diarrhea. He denies any pain and has no change in bowel habits such as constipation or diarrhea Related Data Home Medications Medication Instructions Recorded Confirmed multivitamin 1 cap PO DAILY ##0 06/19/10 11/26/21 aspirin 81 mg tablet,delayed 81 mg PO DAILY 09/04/19 11/26/21 release loratadine 10 mg tablet (Claritin) 10 mg PO DAILY PRN allergy symptoms 07/22/21 11/26/21 omega-3 fatty acids 1,000 mg 1,000 mg PO BID 11/03/21 11/26/21 capsule (Fish Oil Concentrate) hydrochlorothiazide 25 mg tablet 25 mg PO DAILY 11/26/21 11/26/21 metoprolol succinate 50 mg 50 mg PO DAILY 11/26/21 11/26/21 tablet,extended release 24 hr rosuvastatin 10 mg tablet 10 mg PO DAILY 11/26/21 11/26/21 Previous Rx's Medication Instructions Recorded amoxicillin 500 mg tablet 2,000 mg PO ONCE PRN prior to 11/03/21 dental work #4 tabs omeprazole 40 mg capsule,delayed 40 mg PO DAILY #90 caps 11/03/21 release cefuroxime axetil 500 mg tablet 500 mg PO BID #20 tabs 02/10/22 Allergies Allergy/AdvReac Type Severity Reaction Status Date / Time No Known Drug Allergies Allergy Verified 11/26/21 13:17 Review of Systems Review of Systems Narrative: GENERAL: See HPI HEENT: Denies sinus pain, ear pain, sore throat, difficulty swallowing, dizziness. RESPIRATORY: Denies dyspnea, cough, wheezing, hemoptysis, sputum. CARDIOVASCULAR: Denies chest pain, palpitations, orthopnea, edema, GASTROINTESTINAL: Denies nausea, vomiting, abdominal pain, diarrhea, constipation, melena. : See HPI MUSCULOSKELETAL: denies weakness, joint pain, or bony pain SKIN: Denies rash, skin lesions, or other NEUROLOGIC: Denies weakness, headache, numbness, change in speech, confusion, seizures, incoordination. PSYCHIATRIC: No concerning psychosocial issues. 12 point review of systems is negative except for those stated above Patient History Medical History Actinic keratosis (~05/2012) Allergic rhinitis (Unknown) Back pain Vivar's esophagus (Unknown) Bilateral knee pain Blepharitis of both eyes Chronic right hip pain Elevated fasting glucose Elevated hemoglobin A1c Encounter for hepatitis C virus screening test for high risk patient GERD (gastroesophageal reflux disease) (Unknown) Grade III hemorrhoids History of abdominal aortic aneurysm (AAA) (Unknown) Hyperlipemia (Unknown) Hypertension (Unknown) Laceration of left hand Left shoulder pain Neck pain Neoplasm of uncertain behavior of epididymis Obstructive lung disease PAC (premature atrial contraction) PVC's (premature ventricular contractions) RBBB (right bundle branch block) Right inguinal hernia (Unknown) Umbilical hernia (Unknown) Surgical History History of endovascular stent graft for abdominal aortic aneurysm (AAA) (02/2012) Hx of cholecystectomy Hx of hernia repair (~1989) Hx of vasectomy Status post hernia repair (Unknown) Family History Father Diabetes mellitus Mother No problems noted. Brother No problems noted. Brother No problems noted. Brother No problems noted. Brother No problems noted. Social History marital status: household members: spouse occupational status: previously employed Smoking Status: Former smoker Tobacco: How many years used: 30 alcohol intake: current substance use type: does not use caffeine: Yes Type(s) of exercise: walking frequency: 1-2 times per week duration: other Smoking Status: Former smoker alcohol intake frequency: a few times a week Substance Use Type: does not use Exam Narrative Exam Narrative: GENERAL: [81] year old patient appears stated age. Well-developed patient, in mild distress. HEAD: Atraumatic. Normocephalic. EYES: Pupils equal round and reactive. Extraocular motions intact. No scleral icterus. No injection or drainage. ENT: Nose without bleeding, purulent drainage. Throat without erythema, tons illar hypertrophy or exudate. Airway patent. NECK: Trachea midline. Non tender CARDIOVASCULAR: Regular rate and rhythm without murmurs, gallops, or rubs. RESPIRATORY: Clear to auscultation. Breath sounds equal bilaterally. No wheezes, rales, or rhonchi. GASTROINTESTINAL: Abdomen soft, non-tender, nondistended. EXTREMITIES: No edema or joint tenderness. BACK: Nontender without deformity or crepitance. No flank tenderness. NEURO: AOx3. SKIN: No rash or erythema of visible areas Initial Vital Signs Initial Vital Signs: Vital Signs Temperature 101.7 F H 02/09/22 20:01 Pulse Rate 99 H 02/09/22 20:01 Respiratory Rate 18 02/09/22 20:01 Blood Pressure 148/76 H 02/09/22 20:01 Pulse Oximetry 98 02/09/22 20:01 Oxygen Delivery Method 02/09/22 20:01 Course Orders Ordered: Discontinued Medications Sodium Chloride (Normal Saline 0.9%) 2,259 mls @ 753 mls/hr 30 ml/kg infuse over 3 hr (2259 ml) IV NOW ONE Stop: 02/10/22 00:24 Last Infusion: 02/10/22 00:53 Dose: 0 mls/hr Documented By: Admin: 02/09/22 21:52 Dose: 753 mls/hr Documented By: VALENTÍN Ceftriaxone Sodium 2,000 mg/ (Sodium Chloride) 100 mls @ 200 mls/hr IV NOW ONE Stop: 02/09/22 22:42 Last Infusion: 02/10/22 00:05 Dose: 0 mls/hr Documented By: Admin: 02/09/22 23:14 Dose: 200 mls/hr Documented By: VALENTÍN Vital Signs Vital signs: Vital Signs - 8 hr 02/09/22 20:01 02/09/22 21:26 02/09/22 21:26 Temperature 101.7 F H Pulse Rate 99 H 96 H Respiratory Rate 18 Blood Pressure 148/76 H 155/72 H Pulse Oximetry 98 97 Oxygen Delivery Method Room Air 02/09/22 21:30 02/09/22 21:30 02/09/22 22:00 Temperature Pulse Rate 76 96 H Respiratory Rate 22 Blood Pressure 148/74 H Pulse Oximetry 97 Oxygen Delivery Method 02/09/22 22:21 02/09/22 22:21 02/09/22 22:30 Temperature Pulse Rate 94 H Respiratory Rate 17 Blood Pressure 129/66 145/77 H Pulse Oximetry 97 Oxygen Delivery Method 02/09/22 22:30 02/09/22 23:00 02/09/22 23:00 Temperature Pulse Rate 95 H 95 H Respiratory Rate 18 19 Blood Pressure 155/74 H Pulse Oximetry 98 98 Oxygen Delivery Method 02/09/22 23:30 02/09/22 23:30 02/10/22 00:00 Temperature Pulse Rate 95 H Respiratory Rate 23 Blood Pressure 135/67 135/63 Pulse Oximetry 98 Oxygen Delivery Method 02/10/22 00:00 02/10/22 00:30 02/10/22 00:30 Temperature Pulse Rate 95 H 100 H Respiratory Rate 21 23 Blood Pressure 140/66 Pulse Oximetry 98 97 Oxygen Delivery Method MDM - Male Genitourinary Lab Data Result diagrams: 02/09/22 21:47 02/09/22 21:47 Labs: Lab Results 02/09/22 02/09/22 02/09/22 Range/Units 20:23 21:47 21:47 WBC 17.2 H (4.5-11.0) X10^3/uL RBC 4.49 L (4.5-5.9) X10^6/uL Hgb 13.7 (13.5-17.5) g/dL Hct 41.0 (41-53) % MCV 91.2 (80-100) fL MCH 30.6 (26-34) PG MCHC 33.6 (30-36) % RDW 13.5 (11.6-14.8) % Plt Count 201 (150-400) X10^3/uL Neut % (Auto) 83.6 H (50-75) % Lymph % (Auto) 8.0 L (25-40) % [place] % (Auto) 7.2 (3-14) % Eos % (Auto) 1.0 L (2-4) % Baso % (Auto) 0.2 (0-2) % Neut # (Auto) 40292 H (1093-2121) /uL Lymph # (Auto) 1400 (1486-0020) /uL [place] # (Auto) 1200 H (0-900) /uL Eos # (Auto) 200 (0-450) /uL Baso # (Auto) 0 (0-100) /uL Sodium 135 L (137-145) mmol/L Potassium 3.2 L (3.4-5.1) mmol/L Chloride 96 L (98-107) mmol/L Carbon Dioxide 26 (22-32) mmol/L BUN 20 (9-20) mg/dL Creatinine 1.07 (0.66-1.25) mg/dL Estimated GFR > 60 (>60) mL/min BUN/Creatinine Ratio 18.7 (6-22) Glucose 130 H (80-110) mg/dL Lactate (0.7-2.1) mmol/L Calcium 9.0 (8.4-10.2) mg/dL Total Bilirubin 1.0 (0.2-1.3) mg/dL AST 30 (17-59) IU/L ALT 38 (<50) IU/L Alkaline Phosphatase 70 (38-126) U/L Total Creatine Kinase 143 (55-170) U/L CK-MB (CK-2) 0.67 (<2.37) ng/mL CK-MB (CK-2) Rel Index 0.5 L (1.5-5.0) % Troponin I < 0.012 (0.01-0.034) ng/mL Total Protein 8.2 (6.3-8.2) g/dL Albumin 4.3 (3.5-5.0) g/dL Globulin 3.9 (1.7-4.1) g/dL Albumin/Globulin Ratio 1.1 (1.0-2.8) Procalcitonin 0.07 (<0.5) ng/mL Ur Bilirubin Confirm Positive H (Negative) Urine RBC 30-100/hpf H (0-5/HPF) Urine WBC 10-30/hpf H (0-5/HPF) Ur Squamous Epith Cells None seen (0-5/HPF) Urine Bacteria Moderate (10-30) H (None) SARS-CoV-2 (PCR) (Negative) Influenza A (RT-PCR) (NEGATIVE) Influenza B (RT-PCR) (NEGATIVE) RSV (PCR) (Negative) 02/09/22 02/09/22 Range/Units 21:47 21:47 WBC (4.5-11.0) X10^3/uL RBC (4.5-5.9) X10^6/uL Hgb (13.5-17.5) g/dL Hct (41-53) % MCV (80-100) fL MCH (26-34) PG MCHC (30-36) % RDW (11.6-14.8) % Plt Count (150-400) X10^3/uL Neut % (Auto) (50-75) % Lymph % (Auto) (25-40) % [place] % (Auto) (3-14) % Eos % (Auto) (2-4) % Baso % (Auto) (0-2) % Neut # (Auto) (9088-9866) /uL Lymph # (Auto) (6004-7522) /uL [place] # (Auto) (0-900) /uL Eos # (Auto) (0-450) /uL Baso # (Auto) (0-100) /uL Sodium (137-145) mmol/L Potassium (3.4-5.1) mmol/L Chloride (98-107) mmol/L Carbon Dioxide (22-32) mmol/L BUN (9-20) mg/dL Creatinine (0.66-1.25) mg/dL Estimated GFR (>60) mL/min BUN/Creatinine Ratio (6-22) Glucose (80-110) mg/dL Lactate 1.4 (0.7-2.1) mmol/L Calcium (8.4-10.2) mg/dL Total Bilirubin (0.2-1.3) mg/dL AST (17-59) IU/L ALT (<50) IU/L Alkaline Phosphatase (38-126) U/L Total Creatine Kinase (55-170) U/L CK-MB (CK-2) (<2.37) ng/mL CK-MB (CK-2) Rel Index (1.5-5.0) % Troponin I (0.01-0.034) ng/mL Total Protein (6.3-8.2) g/dL Albumin (3.5-5.0) g/dL Globulin (1.7-4.1) g/dL Albumin/Globulin Ratio (1.0-2.8) Procalcitonin (<0.5) ng/mL Ur Bilirubin Confirm (Negative) Urine RBC (0-5/HPF) Urine WBC (0-5/HPF) Ur Squamous Epith Cells (0-5/HPF) Urine Bacteria (None) SARS-CoV-2 (PCR) Negative (Negative) Influenza A (RT-PCR) Flu a negative (NEGATIVE) Influenza B (RT-PCR) Flu b negative (NEGATIVE) RSV (PCR) Negative (Negative) Urine Dip Bedside Urine Glucose Negative Bedside Urine Bilirubin ++ 2 Bedside Urine Ketone - Negative Urine Specific [place] 1.020 Bedside Urine Occult Blood +++ Bedside Urine pH 6 Bedside Urine Protein +/- 15 Bedside Urine Urobilinogen 2+ 4mg Bedside Urine Nitrite + Positive Bedside Urine Leukocytes ++ 125 Esterase MDM Narrative Medical decision making narrative: [81-year-old male with history of Vivar's esophagus prior UTIs presents with rather classic UTI symptoms over the past few days.] Multiple etiologies for patient's symptoms considered including, but not limited to: [UTI, pyelonephritis, prostatitis versus other] Prior Charts reviewed: Including gastroenterology notes from November Labs reviewed and interpreted by myself: Elevated white blood cell count to be expected given infectious process. Lactate and procalcitonin unremarkable. Urine consistent with UTI. Cultures pending. Prior urine culture noted E coli in September 2020, this is considered when selecting antibiotics Imaging reviewed: Chest x-ray demonstrates no acute cardiopulmonary abnormality Patient has significant response to fluids and feels much better over the course of the visit, no longer tachycardic. No longer febrile. No indication for hospitalization at this time Patient's symptoms improved over duration of stay with above-stated therapies. Findings and discharge diagnosis discussed with patient/family followed by verbalization of understanding of diagnosis and plan Return precautions discussed with patient/family whom verbalize understanding of diagnosis and plan Discharge Plan Departure Patient Disposition: Home Clinical Impression: Acute UTI Instructions: DI for Urinary Tract Infection (UTI) Activity Restrictions/Additional Instructions: *You have been diagnosed with [acute UTI ] *What to do: *Please continue to take your regular medications as directed. [x ] New medication prescriptions sent to your pharmacy: [ [facility]] [ ] New medication written as a paper prescription [ ] No new medications given *Please follow up with your primary care provider in 2-3 days, call for an appointment. Let them know you were seen in the Emergency Department and that we ask that you be seen in follow up. We will electronically transmit a record of today's note if your PCP is in our system *If you do not have a primary care provider please contact the [facility] Resource line at [phone]. They will ask some questions about your medical history and help get you set up with a doctor in the community. *Return to Emergency Department if you should have any new, worsening or concerning symptoms, such as [fever greater than 101 F, shaking chills, worsening pain, persistent vomiting or other bothersome symptoms] Prescriptions: New cefuroxime axetil 500 mg tablet 500 mg PO BID Qty: 20 0RF No Action multivitamin Capsule 1 cap PO DAILY Qty: 0 loratadine [Claritin] 10 mg tablet 10 mg PO DAILY PRN (Reason: allergy symptoms) omega-3 fatty acids [Fish Oil Concentrate] 1,000 mg capsule 1,000 mg PO BID omeprazole 40 mg capsule,delayed release(DR/EC) 40 mg PO DAILY Qty: 90 3RF amoxicillin 500 mg tablet 2,000 mg PO ONCE PRN (Reason: prior to dental work) Qty: 4 2RF Rx Instructions: Take 4 tabs by mouth 1 hour prior to dental work. metoprolol succinate 50 mg tablet extended release 24 hr 50 mg PO DAILY hydrochlorothiazide 25 mg tablet 25 mg PO DAILY rosuvastatin 10 mg tablet 10 mg PO DAILY aspirin 81 mg Tablet,Delayed Release (Dr/Ec) 81 mg PO DAILY Referrals: Connie Lynn ARNP [Primary Care Provider] - Stand Alone Forms: Work Release Note Visit Report Forms: Patient Portal/API
[2022-02-09] MEDS: SODIUM CHLORIDE 0.9% 2,259 ML 753 ML IV (21:52)
[2022-02-09 22:00] LABS: Add Manual Diff / Slide Review NO; Basophils Absolute Auto 0 /uL (0-100); Basophils Percent Auto 0.2 % (0-2); Eosinophils Absolute Auto 200 /uL (0-450); Hemoglobin 13.7 g/dL (13.5-17.5); Lymphocytes Absolute Auto 1400 /uL (1100-4500); Mean Corpuscular HGB Conc 33.6 % (30-36); Mean Corpuscular Hemoglobin 30.6 PG (26-34); Mean Corpuscular Volume 91.2 fL (80-100); Monocytes Absolute Auto 1200 /uL (0-900); Monocytes Percent Auto 7.2 % (3-14); Neutrophils Absolute Auto 14400 /uL (1500-7000); Neutrophils Percent Auto 83.6 % (50-75); Platelet Count 201 X10^3/uL (150-400); Red Blood Cell Count 4.49 X10^6/uL (4.5-5.9); Red Cell Distribution Width 13.5 % (11.6-14.8); White Blood Cell Count 17.2 X10^3/uL (4.5-11.0)
[2022-02-09 22:10] LABS: Lactate (Lactic Acid) 1.4 mmol/L (0.7-2.1)
[2022-02-09 22:12] LABS: Alanine Aminotransferase 38 IU/L (<50); Albumin 4.3 g/dL (3.5-5.0); Albumin Globulin Ratio 1.1 (1.0-2.8); Alkaline Phosphatase 70 U/L (38-126); Aspartate Aminotransferase 30 IU/L (17-59); BUN Creatinine Ratio 18.7 (6-22); Blood Urea Nitrogen 20 mg/dL (9-20); Carbon Dioxide 26 mmol/L (22-32); Chloride 96 mmol/L (98-107); Creatine Kinase 143 U/L (55-170); Estimated Glomerular Filt Rate > 60 mL/min (>60); Globulin 3.9 g/dL (1.7-4.1); Glucose 130 mg/dL (80-110); HEMOLYSIS < 15 (0-50); Potassium 3.2 mmol/L (3.4-5.1); Sodium 135 mmol/L (137-145); Total Protein 8.2 g/dL (6.3-8.2)
[2022-02-09 22:23] LABS: Troponin I < 0.012 ng/mL (0.01-0.034)
[2022-02-09 22:27] LABS: CKMB % Relative Index 0.5 % (1.5-5.0); Creatine Kinase MB 0.67 ng/mL (<2.37)
[2022-02-09 22:28] LABS: Procalcitonin 0.07 ng/mL (<0.5)
[2022-02-09] MEDS: cefTRIAXone 2,000 MG in SODIUM CHLORIDE 0.9% 100 ML 200 MG IV (23:14)
[2022-02-09 23:19] LABS: Influenza A - CEPHEID Flu A NEGATIVE (NEGATIVE); Influenza B - CEPHEID Flu B NEGATIVE (NEGATIVE); Respiratory Syncytial Virus Negative (Negative)
[2022-02-09 23:27] LABS: COVID-19 CEPHEID 4-PLEX PCR Negative (Negative)
[2022-02-10] VITALS: BP 135/63; PULSE 95; RESP 21; O2SAT 98
[2022-02-10 00:30] VITALS: BP 140/66; PULSE 100; RESP 23; O2SAT 97
[2022-02-10 01:00] VITALS: BP 146/75; PULSE 93; RESP 21; O2SAT 98
[2022-02-10 01:30] VITALS: BP 136/69; PULSE 97; RESP 21; O2SAT 96
[2022-02-10 02:21] VITALS: BP 136/69; PULSE 99; O2SAT 96
== END 2022-02-10 01:45 | disposition home or self-care (01) ==
PROVIDERS: Emergency Provider Emergency Medicine; PCP Nurse Practitioner
DX: N39.0 Urinary tract infection, site not specified (principal)
CPT/HCPCS: 0241U; 36415; 71045; 80053; 81003; 81015; 82550; 82553; 83605; 84145; 84484; 85025; 87040; 87077; 87086; 87186; 93005; 96360; 99284; J0696

== ENCOUNTER → 2022-06-16 13:21 | Outpatient (CLI) | payer MEDICARE, SELFPAY ==
[2022-06-16 14:24] LABS: Alanine Aminotransferase 29 IU/L (<50); Albumin 4.5 g/dL (3.5-5.0); Albumin Globulin Ratio 1.1 (1.0-2.8); Alkaline Phosphatase 87 U/L (38-126); Aspartate Aminotransferase 36 IU/L (17-59); BUN Creatinine Ratio 25.8 (6-22); Bilirubin Total 0.8 mg/dL (0.2-1.3); Blood Urea Nitrogen 23 mg/dL (9-20); Calcium 9.5 mg/dL (8.4-10.2); Carbon Dioxide 26 mmol/L (22-32); Chloride 102 mmol/L (98-107); Cholesterol 165 mg/dL (140-199); Estimated Glomerular Filt Rate > 60 mL/min (>60); Globulin 4.2 g/dL (1.7-4.1); Glucose 104 mg/dL (80-110); HDL Cholesterol 29 mg/dL (40-60); LDL Cholesterol Calculated 99 mg/dL (<100); Sodium 138 mmol/L (137-145); Total Protein 8.7 g/dL (6.3-8.2); Triglycerides 185 mg/dL (35-150)
[2022-06-16 14:26] LABS: HEMOLYSIS 61 (0-50)
[2022-06-16 15:31] LABS: Free T3, Triiodothyronine Free 3.98 pg/mL (2.77-5.27); Free T4, Direct Thyroxine 0.81 ng/dL (0.78-2.19)
[2022-06-16 15:45] LABS: Thyroid Stimulating Hormone 3.75 uIU/mL (0.47-4.68)
[2022-06-16 17:22] LABS: Appearance Urine UA CLEAR; Bilirubin Urine UA NEGATIVE (NEGATIVE); Color Urine UA YELLOW; Glucose Urine UA NEGATIVE (Negative); Ketones Urine UA NEGATIVE (NEGATIVE); Leukocyte Esterase Urine UA NEGATIVE (NEGATIVE); Nitrite Urine UA NEGATIVE (Negative); Occult Blood Urine UA NEGATIVE (Negative); Protein Urine UA NEGATIVE (Negative); Specific Gravity Urine UA 1.015 (1.000-1.035); pH Urine UA 6.5 (4.5-8.0)
[2022-06-16 17:34] LABS: Bacteria Urine Occasional (0-1); Culture Indicated Urine Cult Not Indicated; Mucus Urine 1+ (Negative); RBC Urine 1-5/HPF (0-5/HPF); Squamous Epithelial Cell Urine 1-5 /HPF (0-5/HPF); WBC Urine 1-5/HPF (0-5/HPF)
[2022-06-16 18:02] LABS: Creatinine Urine Random 192.3 mg/dL
[2022-06-16 18:07] LABS: Microalbumi Creatinin Ratio Ur 7.8 ug/mg CR (<30); Microalbumin Urine Random 1.5 mg/dL (0-1.6)
[2022-06-17 05:13] LABS: Labcorp Hemoglobin (Hb) A1c 5.7 % (4.8-5.6)
== END ==
PROVIDERS: PCP Nurse Practitioner; Referring Provider Nurse Practitioner; Visit Provider Nurse Practitioner
DX: I10 Essential (primary) hypertension; E78.2 Mixed hyperlipidemia; R73.01 Impaired fasting glucose; Z79.899 Other long term (current) drug therapy; E83.42 Hypomagnesemia; R30.0 Dysuria
CPT/HCPCS: 36415; 80053; 80061; 81001; 82043; 82570; 83036; 83735; 84439; 84443; 84481

== ENCOUNTER → 2022-06-28 09:49 | Outpatient (CLI) | payer MEDICARE, SELFPAY ==
--- NOTE | 2022-06-28 09:51 | DI.CT.S_ITS ---
PROCEDURE: CT HEAD/BRAIN WO CON INDICATIONS: f/up imaging for brain bleed in [place] TECHNIQUE: Noncontrast 4.5 mm thick angled axial sections acquired from the foramen magnum to the vertex, with coronal and sagittal reformats. For radiation dose reduction, the following was used: automated exposure control, adjustment of mA and/or kV according to patient size. COMPARISON: Outside Facility, RG, CT BRAIN WO CONTRAST, 05/29/2022, 8:38. FINDINGS: Image quality: Diagnostic CSF spaces: Basal cisterns are patent. The ventricles are symmetric in size and shape. Brain: There is a mild amount of residual right-sided subdural hemorrhage, measuring 2-3 mm in thickness. No new areas of hemorrhage are seen. No intracranial masses. There is cerebral volume loss for age, with resultant ventricular and sulcal prominence. There are periventricular and deep white matter chronic small vessel ischemic changes. There is intracranial internal carotid artery atherosclerosis. Skull and face: Right-sided craniotomy change is seen. Calvarium and visualized facial bones appear intact, without suspicious lesions. Sinuses: Visualized sinuses and mastoids are clear. IMPRESSION: Resolving right-sided subdural hematoma. Right-sided craniotomy change. Dictated by: Fly El M.D. on 06/29/2022 at 12:44 Approved by: Fly El M.D. on 06/29/2022 at 12:46
== END ==
PROVIDERS: PCP Nurse Practitioner; Referring Provider Nurse Practitioner; Visit Provider Nurse Practitioner
DX: I62.00 Nontraumatic subdural hemorrhage, unspecified (principal); I65.23 Occlusion and stenosis of bilateral carotid arteries
CPT/HCPCS: 70450

== ENCOUNTER → 2022-10-28 08:42 | Outpatient (CLI) | payer MEDICARE, SELFPAY ==
--- NOTE | 2022-10-28 | DI.US.S_ITS ---
PROCEDURE: US ABD AORTA ANEURYSM SCREEN INDICATIONS: ABDOMINAL AORTIC ANEURYSM WITHOUT RUPTURE TECHNIQUE: Real time scanning was performed of the aorta and iliac arteries, with image documentation. COMPARISON: None. FINDINGS: Aorta: Proximal aortic diameter measures not well seen due to overlying bowel gas. Mid-aorta measures 2.6 cm. The distal aorta is grafted with the lumen measuring 2.6 cm. Prior ultrasound demonstrated abdominal aortic aneurysm measuring 4.6 cm. Iliac arteries: Right common iliac artery measures 1.1 cm. Left common iliac artery measures 1.2 cm. IMPRESSION: Postoperative changes of graft placement in the distal aorta. No acute abdominal aortic aneurysm. Dictated by: Brando Roberson M.D. on 10/28/2022 at 10:08 Approved by: Brando Roberson M.D. on 10/28/2022 at 10:11
== END ==
PROVIDERS: PCP Nurse Practitioner; Referring Provider Physician Assistant; Visit Provider Physician Assistant
DX: I71.40 Abdominal aortic aneurysm, without rupture, unspecified (principal)
CPT/HCPCS: 76706

== ENCOUNTER → 2023-07-19 07:32 | Outpatient (CLI) | payer MEDICARE, SELFPAY ==
[2023-07-19 10:00] LABS: Add Manual Diff / Slide Review NO; Basophils Absolute Auto 0 /uL (0-100); Basophils Percent Auto 0.5 % (0-2); Eosinophils Absolute Auto 900 /uL (0-450); Eosinophils Percent Auto 10.1 % (2-4); Hemoglobin 14.2 g/dL (13.5-17.5); Lymphocytes Absolute Auto 2600 /uL (1100-4500); Lymphocytes Percent Auto 28.7 % (25-40); Mean Corpuscular HGB Conc 33.8 % (30-36); Mean Corpuscular Hemoglobin 31.7 PG (26-34); Mean Corpuscular Volume 93.7 fL (80-100); Monocytes Absolute Auto 700 /uL (0-900); Monocytes Percent Auto 7.7 % (3-14); Neutrophils Absolute Auto 4800 /uL (1500-7000); Platelet Count 217 X10^3/uL (150-400); Red Blood Cell Count 4.49 X10^6/uL (4.5-5.9); Red Cell Distribution Width 13.4 % (11.6-14.8)
[2023-07-19 10:14] LABS: Hemoglobin A1C% w Est Avg Glu 5.8 % (4.0-6.0)
[2023-07-19 10:38] LABS: Alanine Aminotransferase 34 IU/L (<50); Albumin 4.4 g/dL (3.5-5.0); Albumin Globulin Ratio 1.4 (1.0-2.8); Alkaline Phosphatase 68 U/L (38-126); Aspartate Aminotransferase 32 IU/L (17-59); BUN Creatinine Ratio 17.9 (6-22); Bilirubin Total 0.6 mg/dL (0.2-1.3); Blood Urea Nitrogen 22 mg/dL (9-20); Calcium 9.1 mg/dL (8.4-10.2); Carbon Dioxide 28 mmol/L (22-32); Chloride 103 mmol/L (98-107); Cholesterol 138 mg/dL (140-199); Estimated Glomerular Filt Rate 59 mL/min (>60); Globulin 3.1 g/dL (1.7-4.1); Glucose 108 mg/dL (80-110); HDL Cholesterol 35 mg/dL (40-60); HEMOLYSIS < 15 (0-50); LDL Cholesterol Calculated 71 mg/dL (<100); Potassium 4.1 mmol/L (3.4-5.1); Sodium 139 mmol/L (137-145); Total Protein 7.5 g/dL (6.3-8.2); Triglycerides 160 mg/dL (35-150)
[2023-07-19 11:10] LABS: TSH w/ Reflex to FT4 6.34 uIU/mL (0.47-4.68)
[2023-07-19 11:37] LABS: Free T4, Direct Thyroxine 0.78 ng/dL (0.78-2.19)
== END ==
PROVIDERS: PCP Nurse Practitioner; Referring Provider Nurse Practitioner; Visit Provider Nurse Practitioner
DX: R73.01 Impaired fasting glucose (principal); E78.2 Mixed hyperlipidemia; I10 Essential (primary) hypertension; S06.4X0D Epidural hemorrhage without loss of consciousness, subsequent encounter
CPT/HCPCS: 36415; 80053; 80061; 83036; 84439; 84443; 85025

== ENCOUNTER → 2023-12-01 11:05 | Outpatient (CLI) | payer MEDICARE, SELFPAY ==
--- NOTE | 2023-12-01 11:07 | DI.US.S_ITS ---
PROCEDURE: US CAROTID DOPPLER BI INDICATIONS: OCCLUSION AND STENOSIS OF BILATERAL CAROTID ARTERIES TECHNIQUE: Color and pulse Doppler interrogation was performed of both carotid systems, with image documentation and velocity measurements. COMPARISON: [facility], , CAROTID DOPPLER BI, 09/23/2021, 10:09. FINDINGS: Stenosis calculations are based on SRU (Society of Radiologists in Ultrasound) criteria. Right side: Brachial blood pressure: 115/72 mm Hg. Common carotid artery peak systolic velocity: 89 cm/sec. Internal carotid artery peak systolic velocity: 64 cm/sec. Internal carotid artery end diastolic velocity: 17 cm/sec. External carotid artery peak systolic velocity: 106 cm/sec. ICA/CCA peak systolic ratio: 0.7. (Previously 1.2) Velez scale imaging description: Moderate plaque Percent internal carotid artery stenosis: Less than 50 % stenosis. Vertebral artery: Flow direction is antegrade. Left side: Brachial blood pressure: 118/72 mm Hg. Common carotid artery peak systolic velocity: 83 cm/sec. Internal carotid artery peak systolic velocity: 75 cm/sec. Internal carotid artery end diastolic velocity: 28 cm/sec. External carotid artery peak systolic velocity: 86 cm/sec. ICA/CCA peak systolic ratio: 0.9. (Previously 1.1) Velez scale imaging description: Wlig-xt-rndccixp plaque Percent internal carotid artery stenosis: Less than 50 % stenosis. Vertebral artery: Flow direction is antegrade. IMPRESSION: 1. Right ICA: Less than 50 % stenosis. 2. Left ICA: Less than 50 % stenosis. 3. Antegrade flow in the bilateral vertebral arteries. Dictated by: Mayank Damico M.D. on 12/02/2023 at 10:40 Approved by: Mayank Damico M.D. on 12/02/2023 at 10:42
[2023-12-01 11:47] LABS: Hematocrit 42.4 % (41-53); Hemoglobin 14.6 g/dL (13.5-17.5); Mean Corpuscular HGB Conc 34.4 % (30-36); Mean Corpuscular Hemoglobin 31.9 PG (26-34); Mean Corpuscular Volume 92.8 fL (80-100); Platelet Count 219 X10^3/uL (150-400); Red Blood Cell Count 4.57 X10^6/uL (4.5-5.9); Red Cell Distribution Width 13.3 % (11.6-14.8); White Blood Cell Count 8.3 X10^3/uL (4.5-11.0)
[2023-12-01 12:25] LABS: Alanine Aminotransferase 32 IU/L (<50); Albumin 4.5 g/dL (3.5-5.0); Albumin Globulin Ratio 1.3 (1.0-2.8); Alkaline Phosphatase 72 U/L (38-126); Aspartate Aminotransferase 36 IU/L (17-59); BUN Creatinine Ratio 21.1 (6-22); Bilirubin Total 0.8 mg/dL (0.2-1.3); Blood Urea Nitrogen 24 mg/dL (9-20); Calcium 9.7 mg/dL (8.4-10.2); Carbon Dioxide 29 mmol/L (22-32); Chloride 103 mmol/L (98-107); Cholesterol 148 mg/dL (140-199); Estimated Glomerular Filt Rate > 60 mL/min (>60); Globulin 3.5 g/dL (1.7-4.1); Glucose 109 mg/dL (80-110); HDL Cholesterol 30 mg/dL (40-60); HEMOLYSIS < 15 (0-50); LDL Cholesterol Calculated 94 mg/dL (<100); Sodium 138 mmol/L (137-145); Triglycerides 118 mg/dL (35-150)
[2023-12-01 12:27] LABS: Hemoglobin A1C% w Est Avg Glu 5.9 % (4.0-6.0)
[2023-12-01 13:13] LABS: TSH w/ Reflex to FT4 2.94 uIU/mL (0.47-4.68)
== END ==
LOC: US 11:06
PROVIDERS: PCP Family Medicine; Referring Provider Physician Assistant; Visit Provider Physician Assistant
DX: I10 Essential (primary) hypertension (principal); Z13.1 Encounter for screening for diabetes mellitus; I65.23 Occlusion and stenosis of bilateral carotid arteries; Z00.00 Encounter for general adult medical examination without abnormal findings; E78.5 Hyperlipidemia, unspecified; Z86.79 Personal history of other diseases of the circulatory system; R73.01 Impaired fasting glucose; E03.8 Other specified hypothyroidism
CPT/HCPCS: 36415; 80053; 80061; 83036; 84443; 85027; 93880

== ENCOUNTER → 2024-06-13 08:50 | Outpatient (CLI) | payer MEDICARE, SELFPAY ==
[2024-06-13 09:51] LABS: Hemoglobin A1C% w Est Avg Glu 5.5 % (4.0-6.0)
[2024-06-13 10:22] LABS: Alanine Aminotransferase 37 IU/L (<50); Albumin 4.6 g/dL (3.5-5.0); Albumin Globulin Ratio 1.5 (1.0-2.8); Alkaline Phosphatase 67 U/L (38-126); Aspartate Aminotransferase 35 IU/L (17-59); BUN Creatinine Ratio 22.8 (6-22); Bilirubin Total 0.7 mg/dL (0.2-1.3); Blood Urea Nitrogen 28 mg/dL (9-20); Calcium 9.7 mg/dL (8.4-10.2); Carbon Dioxide 27 mmol/L (22-32); Chloride 104 mmol/L (98-107); Cholesterol 123 mg/dL (140-199); Estimated Glomerular Filt Rate 58 mL/min (>60); Glucose 112 mg/dL (70-99); HDL Cholesterol 29 mg/dL (40-60); HEMOLYSIS < 15 (0-50); LDL Cholesterol Calculated 61 mg/dL (<100); Potassium 4.6 mmol/L (3.4-5.1); Sodium 140 mmol/L (137-145); Total Protein 7.6 g/dL (6.3-8.2); Triglycerides 165 mg/dL (35-150)
== END ==
PROVIDERS: PCP Family Medicine; Referring Provider Family Medicine; Visit Provider Family Medicine
DX: R73.01 Impaired fasting glucose (principal); E78.5 Hyperlipidemia, unspecified; Z00.00 Encounter for general adult medical examination without abnormal findings; J44.9 Chronic obstructive pulmonary disease, unspecified; I10 Essential (primary) hypertension; H35.30 Unspecified macular degeneration
CPT/HCPCS: 36415; 80053; 80061; 83036

== ENCOUNTER → 2024-12-12 11:04 | Outpatient (CLI) | payer MEDICARE, SELFPAY ==
[2024-12-12 12:28] LABS: Hemoglobin A1C% w Est Avg Glu 5.9 % (4.0-6.0)
[2024-12-12 12:35] LABS: Blood Urea Nitrogen 25 mg/dL (9-20); Calcium 9.5 mg/dL (8.4-10.2); Carbon Dioxide 25 mmol/L (22-32); Chloride 102 mmol/L (98-107); Estimated Glomerular Filt Rate > 60 mL/min (>60); Glucose 107 mg/dL (70-99); HEMOLYSIS < 15 (0-50); Potassium 4.8 mmol/L (3.4-5.1); Sodium 137 mmol/L (137-145)
== END ==
PROVIDERS: PCP Family Medicine; Referring Provider Family Medicine; Visit Provider Family Medicine
DX: R73.01 Impaired fasting glucose (principal); I10 Essential (primary) hypertension; R42 Dizziness and giddiness
CPT/HCPCS: 36415; 80048; 83036